=== PATIENT | male | born 1980 | race Caucasian/White ===

== ENCOUNTER 2019-07-08 11:34 | Emergency (ER) | payer MEDICAID, OTHER ==
[~2019-07-08] VITALS: Ht 185.4 cm; Wt 91.0 kg
[2019-07-08 13:09] VITALS: BP 161/64
[2019-07-08] MEDS ORDERED: IBUP-1984 PO (14:04)
[2019-07-08] MEDS ORDERED: AMOX-117 PO (14:04)
[2019-07-08] MEDS ORDERED: CLIN-14 PO (14:04)
== END 2019-07-08 14:22 | disposition home or self-care (01) ==
LOC: ER 11:34
DX: K04.7 Periapical abscess without sinus (principal); H66.93 Otitis media, unspecified, bilateral; Z79.2 Long term (current) use of antibiotics; Z79.899 Other long term (current) drug therapy
CPT/HCPCS: 99283